=== PATIENT | female | born 1985 | race Caucasian/White ===

== ENCOUNTER 2017-08-08 06:20 | Day surgery (SDC) | payer OTHER ==
[~2017-08-08] VITALS: Ht 167.6 cm; Wt 72.6 kg
[2017-08-08 06:25] VITALS: BP_SYST 133
[2017-08-08 07:05] LABS: BILIRUBIN,URINE NEGATIVE (NEGATIVE); BLOOD, URINE 3+ (NEGATIVE); CLARITY/URINE SL HAZY (CLEAR); COLOR,URINE YELLOW (YELLOW); GLUCOSE,URINE NEGATIVE (NEGATIVE); KETONES,URINE NEGATIVE (NEGATIVE); LEUKOCYTE ESTERASE ,URINE NEGATIVE (NEGATIVE); NITRITE, URINE NEGATIVE (NEGATIVE); PROTEIN URINE TRACE (NEGATIVE); UROBILINOGEN,URINE 0.2 (0.2-1.0)
[2017-08-08 07:22] LABS: BASOPHILS # (AUTO) 0.1 K/uL (0.0-0.2); BASOPHILS % (AUTO) 0.8 % (0.0-2.0); EOSINOPHILS % (AUTO) 0.5 % (0.0-4.0); HEMATOCRIT 38.3 % (36-48); HEMOGLOBIN 12.9 g/dL (12.0-16.0); LYMPHOCYTES # (AUTO) 3.1 K/uL (1.0-5.5); LYMPHOCYTES % (AUTO) 37.4 % (20.5-51.5); MEAN CORPUSCULAR HEMOGLOBIN 30 pg (27-31); MEAN CORPUSCULAR HGB CONC 34 % (32-36); MEAN CORPUSCULAR VOLUME 89 fL (79.0-98.0); MONOCYTES # (AUTO) 0.5 K/uL (0.0-1.0); MONOCYTES % (AUTO) 6.5 % (1.7-9.3); NEUTROPHILS # (AUTO) 4.5 K/uL (1.8-7.7); NEUTROPHILS % (AUTO) 54.8 % (40.0-70.0); PLATELET COUNT (AUTO) 281 K/uL (130-430); RED BLOOD CELL COUNT(AUTO) 4.31 MIL/uL (4.2-6.2); RED CELL DISTRIBUTION WIDTH 13.4 % (9.0-15.0); WHITE BLOOD COUNT (AUTO) 8.2 K/uL (4.8-10.8)
[2017-08-08 07:23] LABS: BACTERIA,URINE RARE /HPF (None Seen); WBC,URINE 0-3 /HPF (0-3)
[2017-08-08] MEDS ORDERED: ONDANSETRON 4 MG ODT TAB PO ONE (10:00)
[2017-08-08] MEDS ORDERED: MORPHINE SULFATE 10 MG/ML VIAL IM ONE (10:00)
[2017-08-08] MEDS ORDERED: NACL 0.9% 1,000 ML IV ONE (10:30)
[2017-08-08] MEDS ORDERED: PREN-89 PO (11:07)
[2017-08-08] MEDS ORDERED: ONDANSETRON HCL 4 MG/2 ML VIAL ONE (11:51)
[2017-08-08] MEDS ORDERED: ONDANSETRON HCL 4 MG/2 ML VIAL IVP ONE ×2 (12:00→12:25)
[2017-08-08] MEDS ORDERED: DEXAMETHASONE SOD PHOSPHATE 4 MG/ML VIAL IVP ONE (12:25)
[2017-08-08] MEDS ORDERED: OXYTOCIN 10 UNIT/ML VIAL IV ONE (12:25)
[2017-08-08] MEDS ORDERED: KETOROLAC TROMETHAMINE 30 MG VIAL IVP ONE (12:25)
[2017-08-08] MEDS ORDERED: SEVOFLURANE 15 MIN GAS INH ONE (12:25)
[2017-08-08] MEDS ORDERED: MIDAZOLAM HCL 5 MG/5 ML VIAL IVP ONE (12:25)
[2017-08-08] MEDS ORDERED: fentaNYL CITRATE/PF 100 MCG/2 ML AMP IVP ONE (12:25)
[2017-08-08] MEDS ORDERED: PROPOFOL 200MG/ 20ML VIAL (DIPRIVAN) IV ONE (12:25)
[2017-08-08] MEDS ORDERED: CEFAZOLIN 2 GM IVPB PREMIX 50 ML IV ONE (12:25)
[2017-08-08] MEDS ORDERED: LR 1,000 ML IV.SOLN IV ONE (12:25)
[2017-08-08] MEDS ORDERED: MIDAZOLAM HCL 2 MG/2 ML VIAL (VERSED) ONE (12:32)
[2017-08-08] MEDS ORDERED: fentaNYL CITRATE/PF 100 MCG/2 ML AMP ONE (12:33)
[2017-08-08] MEDS ORDERED: fentaNYL CITRATE/PF 100 MCG/2 ML AMP IVP PRN ×2 (12:45)
[2017-08-08] MEDS ORDERED: ONDANSETRON HCL 4 MG/2 ML VIAL IVP PRN ×2 (12:45→13:15)
[2017-08-08 13:00] VITALS: BP_SYST 116
[2017-08-08] MEDS ORDERED: HYDROcodone/ACETAMIN 5-325 MG TAB (NORCO/ VICODIN) PO PRN (13:15)
[2017-08-08] MEDS ORDERED: OXYCODONE/ACETAMINOPHEN 5-325 TABLET PO PRN (13:15)
== END 2017-08-08 13:46 | disposition home or self-care (01) ==
LOC: SED 06:20 → SMU 11:27 → SDS 11:27 → SMU 12:00 → SDS 13:46
PROVIDERS: ATTEND Specialist
DX: O03.1 Delayed or excessive hemorrhage following incomplete spontaneous abortion (principal); O99.211 Obesity complicating pregnancy, first trimester; E66.8 Other obesity; Z68.25 Body mass index [BMI] 25.0-25.9, adult; Z3A.01 Less than 8 weeks gestation of pregnancy
CPT/HCPCS: 59812; 36415; 76856; 81000; 84702; 85025; 86886; 86900; 86901; 88305; J0690; J1100; J1885; J2250; J2270; J2405; J2590; J2704; J3010; J3465; J7030; J7120; Q0162